=== PATIENT | female | born 1970 | race Hispanic/Latino ===

== ENCOUNTER → 2023-06-04 | Outpatient (CLI) | payer BC ==
[~2023-06-04] MED LIST: IOHEXOL 350 MG/ML 100ML INFUS..BTL IV ONE
== END | disposition home or self-care (01) ==
LOC: RAH 08:17
PROVIDERS: ATTEND Student in an Organized Health Care Education/Training Program
DX: R07.9 Chest pain, unspecified (principal)
CPT/HCPCS: 75574; Q9967

== ENCOUNTER 2023-09-10 13:00 | Inpatient (IN) | payer BC ==
[~2023-09-10] VITALS: Ht 154.9 cm; Wt 93.3 kg
[2023-09-10 14:06] LABS: BASOPHILS # (AUTO) 0.04 K/uL (0.00-0.20); BASOPHILS % (AUTO) 0.5 % (0.0-5.0); EOSINOPHILS # (AUTO) 0.24 K/uL (0.00-0.70); EOSINOPHILS % (AUTO) 2.7 % (0.0-8.0); HEMATOCRIT 38.3 % (36-48); IMMATURE GRANULOCYTE ABSOLUTE 0.03 K/uL (0-1); LYMPHOCYTES # (AUTO) 2.3 K/uL (1.0-4.8); LYMPHOCYTES % (AUTO) 25.8 % (21.0-51.0); MEAN CORPUSCULAR HEMOGLOBIN 29.8 pg (27.0-33.0); MEAN CORPUSCULAR HGB CONC 32.6 g/dL (32.0-36.0); MEAN CORPUSCULAR VOLUME 91.2 fL (79-99); MONOCYTES # (AUTO) 0.6 K/uL (0.1-1.0); MONOCYTES % (AUTO) 7.2 % (3.0-13.0); NEUTROPHILS # (AUTO) 5.6 K/uL (1.8-7.7); NEUTROPHILS % (AUTO) 63.5 % (40.0-77.0); PLATELET COUNT (AUTO) 302 K/uL (130-400); RED CELL DISTRIBUTION WIDTH 13.9 % (11.0-15.5); WHITE BLOOD COUNT (AUTO) 8.9 K/uL (4.8-10.8)
[2023-09-10 14:18] LABS: INR <= 0.93 (0.85-1.15); PROTHROMBIN TIME 10.9 SEC (9.6-11.6)
[2023-09-10 14:19] LABS: PARTIAL THROMBOPLASTIN TIME 34.7 SEC (26.3-35.5)
[2023-09-10 14:28] VITALS: BP 147/68; PULSE 62; RESP 16
[2023-09-10 14:32] LABS: ALBUMIN 3.6 g/dL (3.5-5.0); BILIRUBIN,TOTAL 0.4 mg/dL (0.2-1.0); CREATININE 0.8 mg/dL (0.5-1.0); POTASSIUM 3.5 mmol/L (3.5-5.1); TOTAL PROTEIN, SERUM 7.5 g/dL (6.0-8.3)
[2023-09-11] MEDS ORDERED: FLUT16H NASAL (18:07)
[2023-09-11] MEDS ORDERED: CETI10TA57 PO (18:07)
[2023-09-11] MEDS ORDERED: CHOL500050 PO (18:07)
[2023-09-11] MEDS ORDERED: METO-408 PO (18:07)
[2023-09-11] MEDS ORDERED: LEVO75CA5 PO (18:07)
[2023-09-11] MEDS ORDERED: AMLO2.5T4 PO (18:07)
[2023-09-11] MEDS ORDERED: DULO20CA18 PO (18:07)
[2023-09-11] MEDS ORDERED: MONT-39 PO (18:07)
[2023-09-11] MEDS ORDERED: ESOM40CA54 PO (18:07)
[2023-09-15] VITALS (32 sets, daily range): BP systolic 105–151; BP diastolic 54–87; PULSE 64–106; RESP 14–20; O2SAT 96
[2023-09-15] MEDS: LACTATED RINGERS 1000ML 1,000 ML IV ONE (07:15)
[2023-09-15] MEDS: INVANZ 1GM+NS 50ML IVPB 50 ML IV ONE (07:15)
[2023-09-15] MEDS: MEROPENEM 1 GM VIAL ONE (07:16)
[2023-09-15] MEDS ORDERED: PROPOFOL 10 MG/ML 20ML VIAL IV ONE (07:59)
[2023-09-15] MEDS ORDERED: SUCCINYLCHOLINE CHLORIDE 20 MG/ML 10 ML VIAL ONE (07:59)
[2023-09-15] MEDS ORDERED: FENTANYL CITRATE PF 50 MCG/1 ML 2ML VIAL ONE (08:00)
[2023-09-15] MEDS ORDERED: MIDAZOLAM HCL 1 MG/ML 2ML VIAL ONE (08:00)
[2023-09-15] MEDS ORDERED: ROCURONIUM BROMIDE 10MG/1ML 5ML VL ONE ×2 (08:00→10:19)
[2023-09-15] MEDS ORDERED: FENTANYL CITRATE PF 50 MCG/1 ML 5ML AMP IV ONE (08:19)
[2023-09-15] MEDS: INDOCYANINE GREEN 25 MG VIAL IJ ONE (08:41)
[2023-09-15] MEDS: LIDOCAINE 1%-EPI 1:100,000 20 ML VIAL ONE (08:41)
[2023-09-15] MEDS: BUPIVACAINE/PF 0.25% 30ML VIAL IJ ONE (08:41)
[2023-09-15] MEDS ORDERED: EPHEDRINE SULFATE 50 MG/ML AMPULE ONE (08:41)
[2023-09-15] MEDS ORDERED: DEXAMETHASONE SOD PHOSPHATE 10MG/ML 1ML VIAL ONE (11:01)
[2023-09-15] MEDS ORDERED: NEOSTIGMINE METHYLSULFATE 1MG/ML IV ONE (11:01)
[2023-09-15] MEDS ORDERED: ONDANSETRON 4MG INJ ONE (11:01)
[2023-09-15] MEDS ORDERED: GLYCOPYRROLATE 0.2 MG/ML 5 ML VIAL ONE (11:01)
[2023-09-15] MEDS ORDERED: ROPIVACAINE 0.5% 5MG/ML 30ML ONE (11:03)
[2023-09-15] MEDS ORDERED: INSULIN HUMULIN R 100 UNIT/ML 3ML SQ PRN (11:30)
[2023-09-15] MEDS: LACTATED RINGERS 1000ML 1,000 ML IV SCH (11:30)
[2023-09-15] MEDS: ONDANSETRON 4MG INJ ONE ×2 (11:49→15:40)
[2023-09-15] MEDS: MEPERIDINE-PF 25 MG/ML SYG ONE ×2 (11:50→12:17)
[2023-09-15] MEDS: FENTANYL CITRATE PF 50 MCG/1 ML 2ML VIAL ONE (13:11)
[2023-09-15] MEDS: OXYCODONE HCL 5 MG TAB ONE (15:14)
[2023-09-15] MEDS: METOCLOPRAMIDE 10 MG/2 ML VIAL ONE (15:40)
[2023-09-15] MEDS: HYDROMORPHONE 1 MG INJ ONE (16:20)
[2023-09-15] MEDS: ACETAMINOPHEN 325 MG TAB PO SCH (17:30)
[2023-09-15] MEDS: HYDROMORPHONE 0.5 MG SYG (0.5MG/0.5ML) IVP PRN (19:03)
[2023-09-15] MEDS: GABAPENTIN 100 MG CAPSULE PO SCH (21:01)
[2023-09-15] MEDS: OXYCODONE HCL 5 MG TAB PO PRN (23:21)
[2023-09-16] VITALS (8 sets, daily range): BP systolic 108–125; BP diastolic 55–68; PULSE 72–99; RESP 16–18; TEMP 97.7; O2SAT 96–97
[2023-09-16] MEDS: ONDANSETRON 4MG INJ IVP PRN (02:31)
[2023-09-16 04:46] LABS: BASOPHILS # (AUTO) 0.02 K/uL (0.00-0.20); BASOPHILS % (AUTO) 0.1 % (0.0-5.0); HEMATOCRIT 36.5 % (36-48); IMMATURE GRANULOCYTE ABSOLUTE 0.07 K/uL (0-1); LYMPHOCYTES # (AUTO) 1.2 K/uL (1.0-4.8); LYMPHOCYTES % (AUTO) 8.2 % (21.0-51.0); MEAN CORPUSCULAR HEMOGLOBIN 30.1 pg (27.0-33.0); MEAN CORPUSCULAR HGB CONC 33.2 g/dL (32.0-36.0); MEAN CORPUSCULAR VOLUME 90.8 fL (79-99); MONOCYTES # (AUTO) 1.2 K/uL (0.1-1.0); MONOCYTES % (AUTO) 8.1 % (3.0-13.0); NEUTROPHILS # (AUTO) 12.4 K/uL (1.8-7.7); NEUTROPHILS % (AUTO) 83.1 % (40.0-77.0); PLATELET COUNT (AUTO) 322 K/uL (130-400); RED BLOOD CELL COUNT(AUTO) 4.02 MIL/uL (4.00-5.50); RED CELL DISTRIBUTION WIDTH 13.7 % (11.0-15.5)
[2023-09-16 04:49] LABS: CREATININE 0.9 mg/dL (0.5-1.0); POTASSIUM 3.7 mmol/L (3.5-5.1)
[2023-09-16] MEDS: ENOXAPARIN SODIUM 40 MG/0.4 ML SYRINGE SQ SCH (08:37)
[2023-09-16] MEDS ORDERED: NON-FORMULARY MEDICATION 1 EACH (Esomeprazole Magnesium 40 MG) PO PRN (10:30)
[2023-09-16] MEDS: ACETAMINOPHEN 1,000 MG/100 ML VIAL IV PRN (18:09)
[2023-09-16] MEDS: DULOXETINE HCL 10 MG PO SCH (21:00)
[2023-09-17] VITALS (7 sets, daily range): BP systolic 99–127; BP diastolic 51–75; PULSE 70–91; RESP 18–19; O2SAT 97
[2023-09-17 04:04] LABS: BASOPHILS # (AUTO) 0.02 K/uL (0.00-0.20); BASOPHILS % (AUTO) 0.2 % (0.0-5.0); EOSINOPHILS # (AUTO) 0.07 K/uL (0.00-0.70); EOSINOPHILS % (AUTO) 0.7 % (0.0-8.0); HEMATOCRIT 33.3 % (36-48); IMMATURE GRANULOCYTE ABSOLUTE 0.04 K/uL (0-1); LYMPHOCYTES # (AUTO) 2.3 K/uL (1.0-4.8); LYMPHOCYTES % (AUTO) 23.8 % (21.0-51.0); MEAN CORPUSCULAR HEMOGLOBIN 28.9 pg (27.0-33.0); MEAN CORPUSCULAR HGB CONC 32.4 g/dL (32.0-36.0); MONOCYTES # (AUTO) 0.9 K/uL (0.1-1.0); MONOCYTES % (AUTO) 8.8 % (3.0-13.0); NEUTROPHILS # (AUTO) 6.4 K/uL (1.8-7.7); NEUTROPHILS % (AUTO) 66.1 % (40.0-77.0); PLATELET COUNT (AUTO) 293 K/uL (130-400); RED BLOOD CELL COUNT(AUTO) 3.74 MIL/uL (4.00-5.50); WHITE BLOOD COUNT (AUTO) 9.7 K/uL (4.8-10.8)
[2023-09-17 04:27] LABS: CREATININE 0.9 mg/dL (0.5-1.0); POTASSIUM 3.5 mmol/L (3.5-5.1)
[2023-09-17] MEDS: LEVOTHYROXINE 75 MCG TABLET PO SCH (06:21)
[2023-09-17] MEDS ORDERED: NON-FORMULARY MEDICATION 1 EACH (Levothyroxine Sodium (Levothyroxine) 75 MCG) PO SCH (07:30)
[2023-09-17] MEDS: PANTOPRAZOLE 40 MG TAB DR PO SCH (08:46)
[2023-09-17] MEDS: MONTELUKAST SODIUM 10 MG TAB PO SCH (08:46)
[2023-09-17] MEDS: METOPROLOL SUCCINATE 25 MG TAB.SR.24H PO SCH (08:46)
[2023-09-17] MEDS: AMLODIPINE 2.5 MG TAB PO SCH (08:46)
[2023-09-17] MEDS: CETIRIZINE HCL 5 MG TABLET PO SCH (08:46)
[2023-09-17] MEDS ORDERED: NON-FORMULARY MEDICATION 1 EACH (Cetirizine HCl 10 MG) PO SCH (09:00)
[2023-09-18] VITALS: BP 130/53; PULSE 64; RESP 18
[2023-09-18 04:00] VITALS: BP 124/60; PULSE 67; RESP 18
[2023-09-18 05:27] LABS: BASOPHILS # (AUTO) 0.04 K/uL (0.00-0.20); BASOPHILS % (AUTO) 0.5 % (0.0-5.0); EOSINOPHILS # (AUTO) 0.29 K/uL (0.00-0.70); EOSINOPHILS % (AUTO) 3.5 % (0.0-8.0); HEMATOCRIT 34.8 % (36-48); IMMATURE GRANULOCYTE ABSOLUTE 0.03 K/uL (0-1); LYMPHOCYTES # (AUTO) 2.4 K/uL (1.0-4.8); LYMPHOCYTES % (AUTO) 29.4 % (21.0-51.0); MEAN CORPUSCULAR HEMOGLOBIN 29.6 pg (27.0-33.0); MEAN CORPUSCULAR HGB CONC 32.5 g/dL (32.0-36.0); MEAN CORPUSCULAR VOLUME 91.1 fL (79-99); MONOCYTES # (AUTO) 0.8 K/uL (0.1-1.0); MONOCYTES % (AUTO) 9.7 % (3.0-13.0); NEUTROPHILS # (AUTO) 4.6 K/uL (1.8-7.7); NEUTROPHILS % (AUTO) 56.5 % (40.0-77.0); PLATELET COUNT (AUTO) 288 K/uL (130-400); RED BLOOD CELL COUNT(AUTO) 3.82 MIL/uL (4.00-5.50); RED CELL DISTRIBUTION WIDTH 13.8 % (11.0-15.5); WHITE BLOOD COUNT (AUTO) 8.2 K/uL (4.8-10.8)
[2023-09-18 05:37] LABS: CREATININE 0.7 mg/dL (0.5-1.0); POTASSIUM 3.5 mmol/L (3.5-5.1)
[2023-09-18 08:00] VITALS: BP 127/73; PULSE 68; RESP 18
[2023-09-18 10:16] VITALS: O2SAT 94
[2023-09-18 11:52] VITALS: BP 122/70; PULSE 67; RESP 18
[2023-09-23] MEDS ORDERED: VITAMIN D3 1250 MCG PO SCH (09:00)
== END 2023-09-18 12:30 | disposition home or self-care (01) | DRG 331 ==
LOC: DAHIP 09-15 06:35 → 4BH 09-15 17:45
PROVIDERS: ADMIT Surgery; ATTEND Surgery
PROC: 0DJD8ZZ Inspection of Lower Intestinal Tract, Via Natural or Artificial Opening Endoscopic (ICD-10-PCS; 2023-09-15)
PROC: 8E0W4CZ Robotic Assisted Procedure of Trunk Region, Percutaneous Endoscopic Approach (ICD-10-PCS; principal; 2023-09-15 07:55)
PROC: 0DBN0ZZ Excision of Sigmoid Colon, Open Approach (ICD-10-PCS; 2023-09-15 07:55)
PROC: 0DUU47Z Supplement Omentum with Autologous Tissue Substitute, Percutaneous Endoscopic Approach (ICD-10-PCS; 2023-09-15 07:55)
PROC: 0DBP0ZZ Excision of Rectum, Open Approach (ICD-10-PCS; 2023-09-15 07:55)
DX: K57.32 Diverticulitis of large intestine without perforation or abscess without bleeding (principal); E03.9 Hypothyroidism, unspecified; E11.9 Type 2 diabetes mellitus without complications; I10 Essential (primary) hypertension; N73.6 Female pelvic peritoneal adhesions (postinfective); E66.9 Obesity, unspecified; Z82.49 Family history of ischemic heart disease and other diseases of the circulatory system; Z83.3 Family history of diabetes mellitus; Z90.49 Acquired absence of other specified parts of digestive tract; Z79.899 Other long term (current) drug therapy; Z68.38 Body mass index [BMI] 38.0-38.9, adult
CPT/HCPCS: 36415; 45330; 80048; 80053; 81025; 84703; 85025; 85610; 85730; 86850; 86900; 86901; 88307; 93005; A4344; G0378; J0330; J1100; J1170; J1335; J1650; J2175; J2185; J2250; J2405; J2704; J2710; J2765; J2795; J3010; J3490; J7030; J7120; A4215; A4221; A4222; A4223; A4600; A4649; A4663; A4930; A6260; C1769; G0168; J0665

== ENCOUNTER → 2024-01-26 | Outpatient (CLI) | payer BC, OTHER ==
[~2024-01-26] MED LIST changes: +AMLO2.5T4 PO; +CETI10TA57 PO; +CHOL500050 PO; +DULO20CA18 PO; +ESOM40CA66 PO; +FLUT16H NASAL; -IOHEXOL 350 MG/ML 100ML INFUS..BTL IV ONE; +LEVO75CA5 PO; +METO-408 PO; +MONT-39 PO
== END | disposition home or self-care (01) ==
LOC: RAH 12:56
PROVIDERS: ATTEND Physical Medicine & Rehabilitation
DX: M54.50 Low back pain, unspecified (principal); M99.04 Segmental and somatic dysfunction of sacral region; M21.70 Unequal limb length (acquired), unspecified site
CPT/HCPCS: 72114

== ENCOUNTER → 2024-04-25 | Outpatient (CLI) | payer OTHER ==
--- NOTE | 2024-04-25 17:54 | HMCIMG ---
SCOLIOSIS 2-3VW REASON: LEG LENGTH DISCREPANCY, SOMATIC DYSFUNCTION OF SACROILIAC JT,LOW BACK PAIN. COMPARISON: None TECHNIQUE: Scoliosis series was obtained. FINDINGS: There is mild levoscoliosis of the thoracolumbar spine with scoliotic angle of 4.4 degrees. The study is limited due to poor penetration. IMPRESSION: Suspect mild levoscoliosis.
== END | disposition home or self-care (01) ==
LOC: RAH 07:55
PROVIDERS: ATTEND Physical Medicine & Rehabilitation
DX: M41.85 Other forms of scoliosis, thoracolumbar region (principal); M21.70 Unequal limb length (acquired), unspecified site; M99.04 Segmental and somatic dysfunction of sacral region; M54.50 Low back pain, unspecified
CPT/HCPCS: 72082